=== PATIENT | female | born 1990 | race Caucasian/White ===

== ENCOUNTER 2017-09-05 10:17 | Emergency (ER) | payer MEDICAID ==
[2017-09-05] MEDS ORDERED: Morphine 4 MG/ML Syringe IVPUSH ONE (10:35)
--- NOTE | 2017-09-05 10:35 | EDM.PDOC ---
ED HPI GENERAL MEDICAL PROBLEM - General Chief Complaint: Abdominal Pain Time Seen by Provider: 09/05/17 10:20 Source of Information: Reports: Patient History Limitations: Reports: No Limitations - History of Present Illness INITIAL COMMENTS - FREE TEXT/NARRATIVE: HISTORY AND PHYSICAL: History of present illness: Patient is a 27-year-old female who presents to the emergency room today with complaints of umbilical pain due to her hernia. She has had this hernia since her last and has not had it repaired. She states today she was bending over to help her toddler son get his pants on and felt instant pain to her umbilicus that shot across the left mid abdomen. She reports that "usually I can push it back in" but was unable to do so today. She has already been cleared by OB ( monitoring was completed). Receives primary OBGYN care from . Has had no OB related complications thus far. 26 weeks . She denies any recent fever or chills. Denies any chest pain, shortness of breath, vaginal bleeding or discharge, abdominal cramping, nausea/vomiting/ diarrhea. Reports her bowel movements are normal. Review of systems: As per history of present illness and below otherwise all systems reviewed and negative. Past medical history: As per history of present illness and as reviewed below otherwise noncontributory. Surgical history: As per history of present illness and as reviewed below otherwise noncontributory. Social history: No reported history of drug or alcohol abuse. Family history: As per history of present illness and as reviewed below otherwise noncontributory. Physical exam: Gen.: Well-developed and well-nourished 27-year-old female. Alert and oriented. Nontoxic appearing and appears in mild comfort due to pain. HEENT: Atraumatic, normocephalic, pupils reactive, negative for conjunctival pallor or scleral icterus, mucous membranes moist, throat clear, neck supple, nontender, trachea midline. Lungs: Clear to auscultation, breath sounds equal bilaterally, chest nontender. Heart: S1S2, regular, negative for clicks, rubs, or JVD. Abdomen: Soft, , tenderness with palpation to the umbilicus. Hernia at the umbilicus which patient does not tolerate palpation/pressure to attempt to reduce. Negative for masses or hepatosplenomegaly. Negative for costovertebral tenderness. Pelvis: Stable nontender. Genitourinary: Deferred. Rectal: Deferred. Extremities: Atraumatic, negative for cords or calf pain. Neurovascular unremarkable. Neuro: Awake, alert, oriented. Cranial nerves II through XII unremarkable. Cerebellum unremarkable. Motor and sensory unremarkable throughout. Exam nonfocal. Patient does have intense pain when palpating the umbilical area. She is unable to tolerate it being reduced. Morphine has been given for comfort. The hernia was reduced by Dr. Momin. Patient tolerated fair. Postreduction the patient denies any pain at this time. VSS. Discussed with her and her signs and symptoms to monitor for that would prompt her to come back to the emergency room. Both voice understanding and are agreeable to plan of care. She will resume her routine OB appointments and inform Dr. Carranza of her visit today. Diagnostics: CBC, CMP Therapeutics: Morphine Impression: Umbilical Hernia, reduced 2nd trimester Plan: 1. Tylenol as needed for pain management. 2. Continue to follow up with Dr. Carranza for your [facility] appointments. 3. If your pain should return, worsen or new symptoms develop please return to the emergency room as we discussed. Definitive disposition and diagnosis as appropriate pending reevaluation and review of above. Onset: Today Duration: Hour(s): Location: Reports: Abdomen umbilical Pain Score (Numeric/FACES): 7 - Related Data Allergies Allergy/AdvReac Type Severity Reaction Status Date / Time Penicillins Allergy Other Verified 09/05/17 10:26 Social & Family History - Tobacco Use Smoking Status *Q: Current Every Day Smoker Years of Tobacco use: 9 Packs/Tins Daily: 1 - Recreational Drug Use Recreational Drug Use: No ED ROS GENERAL - Review of Systems Review Of Systems: ROS reveals no pertinent complaints other than HPI. ED EXAM, GI/ABD - Physical Exam Exam: See Below (See dictation) Course - Vital Signs Last Recorded V/S: Last Vital Signs Temp 96.9 F 09/05/17 10:26 Pulse 92 09/05/17 10:26 Resp 18 09/05/17 10:26 BP 110/47 L 09/05/17 10:26 Pulse Ox 97 09/05/17 10:26 - Orders/Labs/Meds Orders: Active Orders 24 hr Category Date Time Status Ready for Discharge [RC] PER UNIT ROUTINE Care 09/05/17 10:04 Active Labs: Laboratory Tests 09/05/17 09/05/17 09/05/17 Range/Units 09:10 11:16 11:16 WBC 14.91 H (4.0-11.0) K/uL RBC 4.09 L (4.30-5.90) M/uL Hgb 13.1 (12.0-16.0) g/dL Hct 38.0 (36.0-46.0) % MCV 92.9 (80.0-98.0) fL MCH 32.0 (27.0-32.0) pg MCHC 34.5 (31.0-37.0) g/dL RDW Std Deviation 43.2 (28.0-62.0) fl RDW Coeff of Dexter 13 (11.0-15.0) % Plt Count 244 (150-400) K/uL MPV 9.80 (7.40-12.00) fL Neut % (Auto) 78.8 (48.0-80.0) % Lymph % (Auto) 15.8 L (16.0-40.0) % [place] % (Auto) 4.8 (0.0-15.0) % Eos % (Auto) 0.5 (0.0-7.0) % Baso % (Auto) 0.1 (0.0-1.5) % Neut # (Auto) 11.8 H (1.4-5.7) K/uL Lymph # (Auto) 2.4 (0.6-2.4) K/uL [place] # (Auto) 0.7 (0.0-0.8) K/uL Eos # (Auto) 0.1 (0.0-0.7) K/uL Baso # (Auto) 0.0 (0.0-0.1) K/uL Nucleated RBC % 0.0 /100WBC Nucleated RBCs # 0 K/uL Sodium 136 (136-146) mmol/L Potassium 4.1 (3.5-5.1) mmol/L Chloride 107 (98-110) mmol/L Carbon Dioxide 22 (21-31) mmol/L BUN 5 L (6.0-23.0) mg/dL Creatinine 0.6 (0.6-1.5) mg/dL Est Cr Clr Drug Dosing 105.34 mL/min Estimated GFR (MDRD) > 60.0 ml/min Glucose 81 (60-110) mg/dL Calcium 9.0 (8.8-10.8) mg/dL Total Bilirubin 0.3 (0.1-1.5) mg/dL AST 11 (5-40) IU/L ALT 9 (8-54) IU/L Alkaline Phosphatase 83 (40-150) Total Protein 6.7 (6.0-8.0) g/dL Albumin 3.5 (3.5-5.0) g/dL Globulin 3.2 (2.0-3.5) g/dL Albumin/Globulin Ratio 1.1 L (1.3-2.8) Urine Color YELLOW Urine Appearance CLEAR Urine pH 7.0 (5.0-8.0) Ur Specific Orient 1.015 (1.001-1.035) Urine Protein NEGATIVE (NEGATIVE) mg/dL Urine Glucose (UA) NEGATIVE (NEGATIVE) mg/dL Urine Ketones NEGATIVE (NEGATIVE) mg/dL Urine Occult Blood NEGATIVE (NEGATIVE) Urine Nitrite NEGATIVE (NEGATIVE) Urine Bilirubin NEGATIVE (NEGATIVE) Urine Urobilinogen 0.2 (<2.0) EU/dL Ur Leukocyte Esterase NEGATIVE (NEGATIVE) Meds: Medications Discontinued Medications Generic Name Dose Route Start Last Admin Trade Name Freq PRN Reason Stop Dose Admin Morphine Sulfate 4 mg 09/05/17 10:35 09/05/17 11:21 Morphine IVPUSH 09/05/17 10:36 4 mg ONETIME ONE Administration Departure - Departure Time of Disposition: 12:02 Disposition: DC/Tfer to Other 70 Clinical Impression: Umbilical hernia Qualifiers: Obstruction and gangrene presence: without obstruction or gangrene Qualified Code(s): K42.9 - Umbilical hernia without obstruction or gangrene - Discharge Information Referrals: Daisy Ayers MD [Primary Care Provider] - Additional Instructions: My general discharge The following information is given to patients seen in the emergency department who are being discharged to home. This information is to outline your options for follow-up care. We provide all patients seen in our emergency department with a follow-up referral. The need for follow-up, as well as the timing and circumstances, are variable depending upon the specifics of your emergency department visit. If you don't have a primary care physician on staff, we will provide you with a referral. We always advise you to contact your personal physician following an emergency department visit to inform them of the circumstance of the visit and for follow-up with them and/or the need for any referrals to a consulting specialist. The emergency department will also refer you to a specialist when appropriate. This referral assures that you have the opportunity for follow-up care with a specialist. All of these measure are taken in an effort to provide you with optimal care, which includes your follow-up. Under all circumstances we always encourage you to contact your private physician who remains a resource for coordinating your care. When calling for follow-up care, please make the office aware that this follow-up is from your recent emergency room visit. If for any reason you are refused follow-up, please contact the [facility] Emergency Department at and asked to speak to the emergency department charge nurse. [facility] [address] [place] [phone] 1. Tylenol as needed for pain management. 2. Continue to follow up with Dr. Carranza for your [facility] appointments. 3. If your pain should return, worsen or new symptoms develop please return to the emergency room as we discussed.
[2017-09-05 11:48] LABS: CHLORIDE,CL 107 mmol/L (98-110); SODIUM,NA 136 mmol/L (136-146)
[2017-09-05 22:47] VITALS: BP 106/48
== END 2017-09-05 12:20 | disposition home or self-care (01) ==
LOC: MW.OB 10:17 → MW.ED 10:17 → MW.OB 10:17 → MW.ED 10:17 → EDSTATUS 10:18 → MW.ED 10:21
DX: O99.612 Diseases of the digestive system complicating pregnancy, second trimester (principal); K42.9 Umbilical hernia without obstruction or gangrene; O99.340 Other mental disorders complicating pregnancy, unspecified trimester; F41.9 Anxiety disorder, unspecified; O99.333 Smoking (tobacco) complicating pregnancy, third trimester; Z3A.26 26 weeks gestation of pregnancy; Z88.0 Allergy status to penicillin
CPT/HCPCS: 36415; 59025; 80053; 81003; 85025; 96374; 99285; J2270